=== PATIENT | male | born 1980 | race African-American/Black ===

== ENCOUNTER 2021-09-25 13:38 | Inpatient (IN) | payer OTHER ==
[~2021-09-25] VITALS: Ht 180.3 cm; Wt 88.5 kg
[2021-09-25 15:38] LABS: BASOPHILS % 0.6 % (0.0-2.0); EOSINOPHILS % 1.5 % (0.0-5.0); HEMOGLOBIN. 13.2 g/dL (14.0-18.0); LYMPHOCYTES % 18.4 % (20.0-50.0); MEAN CORPUSCULAR HEMOGLOBIN 28.9 pg (28.0-32.0); MEAN CORPUSCULAR VOLUME 87.6 fL (80.0-94.0); MEAN PLATELET VOLUME 8.4 fl (7.4-10.4); NEUTROPHILS % 70.5 % (40.0-76.0); PLATELET 145 x1000/uL (130-400); RED BLOOD CELL COUNT 4.57 mill/uL (4.7-6.1); RED CELL DISTRIBUTION WIDTH 12.9 % (11.6-14.6)
[2021-09-25 15:44] LABS: INR 1.2; PROTHROMBIN TIME 12.8 sec (9.6-11.0)
[2021-09-25 15:55] LABS: CHLORIDE 110 mEq/L (98-107)
[2021-09-25 16:08] LABS: ETHANOL BLOOD < 10 mg/dL
[2021-09-25] MEDS ORDERED: IPRATROPIUM/ALBUTEROL 0.5-3(2.5)MG/3ML NEB HHN PRN (17:45)
[2021-09-25] MEDS ORDERED: DIPHENHYDRAMINE 50MG/ML VIAL IV PRN (17:45)
[2021-09-25] MEDS ORDERED: ONDANSETRON HCL 4MG/2ML INJ IV PRN (17:45)
[2021-09-25] MEDS: SODIUM CHLORIDE 0.9% 1,000 ML IV SCH (17:45)
[2021-09-25] MEDS ORDERED: ACETAMINOPHEN 325MG TABLET PO PRN (17:45)
[2021-09-25] MEDS ORDERED: CLONIDINE 0.1MG TABLET PO PRN (17:45)
[2021-09-25 20:00] VITALS: BP 130/90
[2021-09-25 23:20] VITALS: BP 130/90
[2021-09-26] VITALS: BP 123/87
[2021-09-26 04:00] VITALS: BP 117/85
[2021-09-26 06:29] LABS: BASOPHILS % 0.5 % (0.0-2.0); EOSINOPHILS % 1.7 % (0.0-5.0); HEMOGLOBIN. 12.1 g/dL (14.0-18.0); LYMPHOCYTES % 13.9 % (20.0-50.0); MEAN CORPUSCULAR HEMOGLOBIN 29.2 pg (28.0-32.0); MEAN CORPUSCULAR VOLUME 86.5 fL (80.0-94.0); MEAN PLATELET VOLUME 8.2 fl (7.4-10.4); MONOCYTES % 9.6 % (2.0-8.0); NEUTROPHILS % 74.3 % (40.0-76.0); PLATELET 115 x1000/uL (130-400); RED BLOOD CELL COUNT 4.16 mill/uL (4.7-6.1); RED CELL DISTRIBUTION WIDTH 12.9 % (11.6-14.6)
[2021-09-26 06:56] LABS: CHLORIDE 111 mEq/L (98-107)
[2021-09-26] MEDS ORDERED: SODIUM BICARBONATE 4% (2.4MEQ) 5ML VIAL IV ONE (08:34)
[2021-09-26] MEDS ORDERED: LIDOCAINE HCL 1% 10 MG/ML 10ML VIAL ONE (08:34)
[2021-09-26 12:00] VITALS: BP 125/80
[2021-09-26] MEDS: FUROSEMIDE 40MG/4ML VIAL IVP SCH (13:35)
[2021-09-26 16:00] VITALS: BP 121/79
[2021-09-26] MEDS: SODIUM CHLORIDE 0.9% 1,000 ML IV SCH ×2 (18:15→18:45)
[2021-09-26 19:03] LABS: HEPATITIS B SURFACE ANTIGEN NEGATIVE
[2021-09-26 20:00] VITALS: BP 117/76
[2021-09-27] VITALS (7 sets, daily range): BP systolic 103–139; BP diastolic 67–80
[2021-09-27 06:52] LABS: BASOPHILS % 0.6 % (0.0-2.0); EOSINOPHILS % 1.9 % (0.0-5.0); HEMATOCRIT. 36.9 % (42.0-52.0); HEMOGLOBIN. 12.5 g/dL (14.0-18.0); MEAN CORPUSCULAR VOLUME 85.3 fL (80.0-94.0); MEAN PLATELET VOLUME 8.8 fl (7.4-10.4); MONOCYTES % 12.1 % (2.0-8.0); NEUTROPHILS % 70.4 % (40.0-76.0); PLATELET 123 x1000/uL (130-400); RED BLOOD CELL COUNT 4.32 mill/uL (4.7-6.1); RED CELL DISTRIBUTION WIDTH 12.8 % (11.6-14.6)
[2021-09-27 07:12] LABS: CHLORIDE 108 mEq/L (98-107)
[2021-09-27] MEDS: FUROSEMIDE 40MG/4ML VIAL IVP SCH (09:31)
[2021-09-27] MEDS: CARVEDILOL 3.125 MG TABLET PO SCH (21:44)
[2021-09-28 04:00] VITALS: BP 106/73
[2021-09-28 06:43] LABS: BASOPHILS % 0.4 % (0.0-2.0); EOSINOPHILS % 2.1 % (0.0-5.0); HEMATOCRIT. 37.3 % (42.0-52.0); HEMOGLOBIN. 12.7 g/dL (14.0-18.0); LYMPHOCYTES % 18.4 % (20.0-50.0); MEAN CORPUSCULAR VOLUME 85.3 fL (80.0-94.0); MEAN PLATELET VOLUME 8.9 fl (7.4-10.4); MONOCYTES % 9.8 % (2.0-8.0); NEUTROPHILS % 69.3 % (40.0-76.0); PLATELET 126 x1000/uL (130-400); RED BLOOD CELL COUNT 4.37 mill/uL (4.7-6.1)
[2021-09-28 06:49] LABS: CHLORIDE 109 mEq/L (98-107)
[2021-09-28 07:49] VITALS: BP 95/61
[2021-09-28 09:00] VITALS: BP 106/67
[2021-09-28] MEDS: FUROSEMIDE 40MG/4ML VIAL IVP SCH (09:19)
[2021-09-28] MEDS: CARVEDILOL 3.125 MG TABLET PO SCH (09:46)
[2021-09-28 12:00] VITALS: BP 109/72
[2021-09-28] MEDS ORDERED: CARV3.1242 MT (12:00)
[2021-09-28] MEDS ORDERED: SPIR25TA6 MT (12:00)
[2021-09-28] MEDS ORDERED: POTASSIUM CHLORIDE 20MEQ TABLET SR PO NR (12:00)
[2021-09-28] MEDS ORDERED: FOLI-43 MT (12:09)
[2021-09-28] MEDS ORDERED: L25 MT (12:09)
[2021-09-28] MEDS ORDERED: THIA100T72 MT (12:09)
[2021-09-28] MEDS ORDERED: MULT-1116 MT (12:09)
[2021-09-28 13:22] VITALS: BP 109/72
== END 2021-09-28 15:44 | disposition home or self-care (01) | DRG 280 ==
LOC: ER 13:38 → 8WST 17:05 → EDBEDREQ 17:07 → ENRESERV 17:14
PROVIDERS: ADMIT Internal Medicine; ATTEND Internal Medicine
PROC: 0W9G3ZZ Drainage of Peritoneal Cavity, Percutaneous Approach (ICD-10-PCS; principal; 2021-09-26)
DX: K70.31 Alcoholic cirrhosis of liver with ascites (principal); K76.6 Portal hypertension; E88.09 Other disorders of plasma-protein metabolism, not elsewhere classified; Z20.822 Contact with and (suspected) exposure to COVID-19; D64.9 Anemia, unspecified; E87.70 Fluid overload, unspecified; F10.10 Alcohol abuse, uncomplicated; F17.200 Nicotine dependence, unspecified, uncomplicated; N50.89 Other specified disorders of the male genital organs; R60.0 Localized edema; R74.01 Elevation of levels of liver transaminase levels
CPT/HCPCS: 36415; 49083; 71045; 76700; 80048; 80053; 80076; 80320; 82040; 82105; 83880; 85025; 86705; 86709; 86803; 87340; 87426; 93005; 93306; 93970; 99285; C9803; J1940; J3490; G0480